=== PATIENT | female | born 1985 | race Caucasian/White ===

== ENCOUNTER 2016-07-09 16:41 | Emergency (ER) | payer OTHER ==
[2016-07-09 18:01] VITALS: BP 117/77
--- NOTE | 2016-07-09 18:16 | UC ---
Hand/Wrist HPI - HPI Summary HPI Summary: While carrying laundry basket yesterday, handle broke and L 5th finger was twisted in an odd direction, injuring DIP joint. [place] it was angulated at first , but she was able to straighten it out. - History Of Current Complaint Chief Complaint: UCUpperExtremity Stated Complaint: LEFT PINKY INJURY Time Seen by Provider: 07/09/16 18:00 Hx Obtained From: Patient Hx Last Menstrual Period: 06/14/16 ?: No Onset/Duration: Sudden Onset Severity Initially: Moderate Severity Currently: Moderate Character Of Pain: Dull, Aching, Throbbing Aggravating Factor(s): Movement Alleviating: Rest Associated Signs And Symptoms: Positive: Redness Related History: Dominant Hand Right - Allergies/Home Medications Allergies/Adverse Reactions: Allergies Allergy/AdvReac Type Severity Reaction Status Date / Time Latex Allergy Severe anaphlactic Verified 03/07/16 20:18 shock Erythromycin Allergy Vomiting Verified 03/07/16 20:18 Home Medications: Home Medications Albuterol HFA INHALER* [Ventolin HFA Inhaler*] 2 puff INH Q6H PRN 07/09/16 [ History Confirmed 07/09/16] Fluticas/Salmet 115/21 HFA(NF) [Advair HFA 115/21 (NF)] 1 puff INH DAILY [History Confirmed 07/09/16] PMH/Surg Hx/FS Hx/Imm Hx Respiratory History Of: Reports: Asthma - Surgical History Surgical History: None - Family History Known Family History: Negative: Blood Disorder - Social History Occupation: Employed Full-time - daycare provider Alcohol Use: None Substance Use Type: None Smoking Status (MU): Never Smoked Tobacco - Immunization History Most Recent Influenza Vaccination: no Review of Systems Constitutional: Negative Skin: Negative Eyes: Negative ENT: Negative Respiratory: Negative Cardiovascular: Negative Gastrointestinal: Negative Genitourinary: Negative Motor: Negative Neurovascular: Negative Musculoskeletal: Arthralgia Neurological: Negative Psychological: Negative All Other Systems Reviewed And Are Negative: Yes Physical Exam Triage Information Reviewed: Yes Appearance: Well-Appearing, No Pain Distress, Well-Nourished Vital Signs: Initial Vital Signs Temp 99.4 F 07/09/16 17:53 Pulse 75 07/09/16 17:53 Resp 16 07/09/16 17:53 BP 117/77 01/09/17 17:53 Pulse Ox 99 07/09/16 17:53 Vital Signs Reviewed: Yes Eye Exam: Normal Eyes: Positive: Conjunctiva Clear ENT Exam: Normal ENT: Positive: Normal ENT inspection, Hearing grossly normal, Pharynx normal, TMs normal Dental Exam: Normal Neck exam: Normal Neck: Positive: Supple, Nontender, No Lymphadenopathy Respiratory Exam: Normal Respiratory: Positive: Chest non-tender, Lungs clear, Normal breath sounds, No respiratory distress, No accessory muscle use Cardiovascular Exam: Normal Cardiovascular: Positive: RRR, No Murmur Musculoskeletal: Positive: No Edema, ROM Limited @ - L 5th finger Neurological Exam: Normal Psychological Exam: Normal Skin Exam: Normal Hand/Wrist Course/Dx - Differential Dx/Diagnosis Provider Diagnoses: L 5th finger sprain Discharge - Discharge Plan Condition: Stable Disposition: HOME Patient Education Materials: Finger Sprain (ED) Referrals: Jenaro Mack MD [Primary Care Provider] - Oscar Jacob MD [Medical Doctor] - If Needed Additional Instructions: If you do not see clear improvement within 7-10 days, please follow up with the orthopedist.
--- NOTE | 2016-07-09 18:31 | RAD ---
Indication: Left fifth finger injury. 3 views of the fifth digit demonstrates no fracture or dislocation. No other bone or joint abnormality is noted. IMPRESSION: No fracture of the fifth finger is noted.
== END 2016-07-09 18:45 | disposition home or self-care (01) ==
LOC: UCCORT 16:41
DX: S63.617A Unspecified sprain of left little finger, initial encounter (principal); X50.1XXA Overexertion from prolonged static or awkward postures, initial encounter; Y93.89 Activity, other specified; Y92.9 Unspecified place or not applicable; Z88.1 Allergy status to other antibiotic agents
CPT/HCPCS: 73140; 99211; G0463

== ENCOUNTER 2017-09-14 09:18 | Emergency (ER) | payer OTHER ==
[2017-09-14 09:48] VITALS: BP 128/82
--- NOTE | 2017-09-14 10:02 | UC ---
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 that had croup- coupe days later she got harsh cough with bronchial burning-- - History of Current Complaint Chief Complaint: UCRespiratory Stated Complaint: SORE THROAT, COUGH Time Seen by Provider: 09/14/17 09:54 Hx Obtained From: Patient Hx Last Menstrual Period: 08/30/17 ?: No Onset/Duration: Sudden Onset, Lasting Days, Still Present Timing: Constant Severity Initially: Mild Severity Currently: Moderate Character: Cough: Productive Aggravating Factors: Deep Breaths, Recumbent Position Alleviating Factors: Bronchodilator Associated Signs And Symptoms: Positive: Chills, Pleuritic Chest Pain - Allergies/Home Medications Allergies/Adverse Reactions: Allergies Allergy/AdvReac Type Severity Reaction Status Date / Time erythromycin base Allergy Vomiting Verified 09/14/17 09:41 latex Allergy Anaphylatic Verified 09/14/17 09:41 Shock Home Medications: Home Medications Bupropion XL* [Wellbutrin XL *] 1 tab PO DAILY 09/14/17 [History Confirmed 09/14] Sertraline* [Zoloft*] 100 mg PO DAILY 09/14/17 [History Confirmed 09/14/17] PMH/Surg Hx/FS Hx/Imm Hx Previously Healthy: No Respiratory History: Asthma Psychological History: Depression - Surgical History Surgical History: None - Family History Known Family History: Positive: None Negative: Blood Disorder - Social History Occupation: Employed Full-time Lives: With Family Alcohol Use: Rare Substance Use Type: None Smoking Status (MU): Never Smoked Tobacco - Immunization History Most Recent Influenza Vaccination: no Review of Systems Constitutional: Chills Skin: Negative Eyes: Negative ENT: Negative Respiratory: Cough Cardiovascular: Chest Pain - bronchial pain with cough Gastrointestinal: Negative Genitourinary: Negative Motor: Negative Neurovascular: Negative Musculoskeletal: Negative Neurological: Negative Psychological: Negative Is Patient Immunocompromised?: No All Other Systems Reviewed And Are Negative: Yes Physical Exam Triage Information Reviewed: Yes Appearance: Well-Appearing, No Pain Distress, Well-Nourished Vital Signs: Initial Vital Signs Temp 98.5 F 09/14/17 09:43 Pulse 77 09/14/17 09:43 Resp 18 09/14/17 09:43 BP 128/82 09/14/17 09:43 Pulse Ox 97 09/14/17 09:43 Vital Signs Reviewed: Yes Eye Exam: Normal Eyes: Positive: Conjunctiva Clear ENT Exam: Normal ENT: Positive: Normal ENT inspection, Hearing grossly normal, Pharynx normal, TMs normal, Uvula midline. Negative: Nasal congestion, Trismus, Muffled voice, Hoarse voice, Dental tenderness, Sinus tenderness Dental Exam: Normal Neck exam: Normal Neck: Positive: Supple, Nontender, No Lymphadenopathy Respiratory Exam: Normal Respiratory: Positive: Chest non-tender, Lungs clear, Normal breath sounds, No respiratory distress, No accessory muscle use Cardiovascular Exam: Normal Cardiovascular: Positive: RRR, No Murmur, Pulses Normal, Brisk Capillary Refill Musculoskeletal Exam: Normal Musculoskeletal: Positive: Strength Intact, ROM Intact, No Edema Neurological Exam: Normal Neurological: Positive: Alert, Muscle Tone Normal Psychological Exam: Normal Skin Exam: Normal UC Diagnostic Evaluation - Laboratory O2 Sat by Pulse Oximetry: 97 Respiratory Course/Dx - Course Course Of Treatment: add prednisone to bronchodilators if symptoms worsen may add antibiodic follow with pcp prn, increase fluids - Differential Dx/Diagnosis Provider Diagnoses: Bronchitis with acute bronchospasm Discharge - Discharge Plan Condition: Stable Disposition: HOME Prescriptions: Albuterol 2.5MG/3ML (0.083%)* [Ventolin 2.5 MG/3 ML NEB.SHAYNA*] 2.5 mg INH Q4H PRN #1 box PRN Reason: cough and wheeze Albuterol HFA INHALER* [Ventolin HFA Inhaler*] 2 puff INH Q4H PRN #1 mdi PRN Reason: cough and wheeze Azithromycin TAB* [Zithromax TAB (Z-ANIYA) 250 mg #6 tabs] 2 tab PO .TODAY, THEN 1 DAILY #1 aniya Fluconazole [Diflucan 150 MG (NF)] 150 mg PO ONCE #2 tab predniSONE TAB* [Deltasone TAB*] 20 mg PO DAILY 6 Days #9 tab Patient Education Materials: Acute Bronchitis (ED), Bronchospasm (ED) Referrals: Jenaro Mack MD [Primary Care Provider] - If Needed
== END 2017-09-14 10:09 | disposition home or self-care (01) ==
LOC: UCCORT 09:18
DX: J40 Bronchitis, not specified as acute or chronic (principal); F32.9 Major depressive disorder, single episode, unspecified
CPT/HCPCS: 99212; G0463

== ENCOUNTER 2018-07-22 16:01 | Emergency (ER) | payer OTHER ==
[2018-07-22 16:19] VITALS: BP 119/60
--- NOTE | 2018-07-22 16:50 | UC ---
Lower Extremity/Ankle HPI - HPI Summary HPI Summary: 32-year-old female presents with complaints of left foot pain after accidentally dropping a 35-40 pound mirror on her foot approximately one hour prior to arrival. Complains of mild discomfort to her dorsal foot over the second and third metatarsals as well as some plantar discomfort of the third and fourth distal metatarsals. Pain slightly worse with weightbearing and ambulation. Mild ecchymosis and swelling at site of injury. She she was able to bear weight immediately after the injury and in the clinic. Denies any numbness or tingling. - History of Current Complaint Chief Complaint: UCLowerExtremity Stated Complaint: LFT FOOT INJURY Time Seen by Provider: 07/22/18 16:20 Hx Obtained From: Patient Hx Last Menstrual Period: unknow, dut to endometriosis Pain Intensity: 3 - Allergies/Home Medications Allergies/Adverse Reactions: Allergies Allergy/AdvReac Type Severity Reaction Status Date / Time erythromycin base Allergy Vomiting Verified 07/22/18 16:16 latex Allergy Anaphylatic Verified 07/22/18 16:16 Shock PMH/Surg Hx/FS Hx/Imm Hx Respiratory History: Asthma Psychological History: Depression - Surgical History Surgical History: None - Family History Known Family History: Positive: Non-Contributory - Social History Occupation: Employed Full-time Lives: With Family Alcohol Use: Rare Substance Use Type: None Smoking Status (MU): Never Smoked Tobacco - Immunization History Most Recent Influenza Vaccination: no Review of Systems All Other Systems Reviewed And Are Negative: Yes Constitutional: Positive: Negative Skin: Positive: Bruising Respiratory: Positive: Negative Cardiovascular: Positive: Negative Gastrointestinal: Positive: Negative Genitourinary: Positive: Negative Motor: Negative: Weakness Neurovascular: Negative: Decreased Sensation Musculoskeletal: Positive: Other: - See HPI Neurological: Positive: Negative Is Patient Immunocompromised?: No Physical Exam - Summary Physical Exam Summary: GENERAL APPEARANCE: Well developed, well nourished, alert and cooperative, and appears to be in no acute distress. CARDIAC: Normal S1 and S2. No S3, S4 or murmurs. Rhythm is regular. There is no peripheral edema, cyanosis or pallor. Extremities are warm and well perfused. Capillary refill is less than 2 seconds. LUNGS: Clear to auscultation without rales, rhonchi, wheezing or diminished breath sounds. Peripheral pulses intact. ABDOMEN: Positive bowel sounds. Soft, nondistended, nontender. No guarding or rebound. No masses or hepatosplenomegally. MUSKULOSKELETAL: Mild tenderness with palpation to dorsal left foot over the 2d & 3rd metarsals. Mild ecchymosis and swelling noted at same site. Normal gait. NEUROLOGICAL: Strength and sensation symmetric and intact distally. SKIN: Skin normal color, texture and turgor. Triage Information Reviewed: Yes Vital Signs: Initial Vital Signs Temp 97.9 F 07/22/18 16:15 Pulse 73 07/22/18 16:15 Resp 16 07/22/18 16:15 BP 119/60 07/22/18 16:15 Pulse Ox 100 07/22/18 16:15 Vital Signs Reviewed: Yes Diagnostics - Radiology No standard instances Radiology Interpretation Completed By: ED Physician - No acute fracture, Radiologist Summary of Radiographic Findings: Patient Name: SARAH CROWLEY . Ordering Physician: Ming Christian NP Acct.#: [id number]. : 1985 Age: 32 Sex: F Location: [facility]. Exam Date: 1622 ADM Status: REG ER. Order Information: FOOT LEFT 3+ VWS. Accession Number: [id number]. CPT: 00401. INDICATION: Pain after dropping a mirror on the foot. COMPARISON: None. TECHNIQUE: 3 views of the left foot were obtained. FINDINGS: The adequately corticated bones are properly aligned. Joint spaces appear. maintained. No fracture, dislocation or focal bony abnormality is seen. IMPRESSION: NO RADIOGRAPHICALLY APPARENT FRACTURE OR DISLOCATION OF THE LEFT FOOT. Lower Extremity Course/Dx - Course Course Of Treatment: 32-year-old female presents with complaints of left foot pain after accidentally dropping a 35-40 pound mirror on her foot approximately one hour prior to arrival. Complains of mild discomfort to her dorsal foot over the second and third metatarsals as well as some plantar discomfort of the third and fourth distal metatarsals. Pain slightly worse with weightbearing and ambulation. Mild erythema and swelling at site of injury. She she was able to bear weight immediately after the injury and in the clinic. Denies any numbness or tingling. Afebrile. Vital signs stable. Exam reveals an adult female in no acute distress with some tenderness over the dorsal aspect of her left foot at the second and third metatarsals with some mild erythema, ecchymosis, and swelling at the same site. Full range of motion to all digits. Good pedal pulses. Sensation intact distally. X-ray negative for fracture. Recommend conservative treatment of contusion of left foot with OTC analgesics and RICE. She is to follow up with her PCP if symptoms persist. Anticipatory guidance and warning symptoms reviewed with patient. Verbalizes understanding and agrees with POC. - Differential Dx/Diagnosis Differential Diagnosis/HQI/PQRI: Contusion, Fracture (Closed) Provider Diagnosis: Contusion of left foot Discharge - Sign-Out/Discharge Documenting (check all that apply): Patient Departure All imaging exams completed and their final reports reviewed: Yes - Discharge Plan Condition: Stable Disposition: HOME Patient Education Materials: Contusion in Adults (ED) Referrals: Jenaro Mack MD [Primary Care Provider] - 7 Days (If no improvement in symptoms.) Additional Instructions: The x-ray of your foot performed in the clinic tonight showed no evidence of a fracture. I suspect that you have a contusion (bruise) of the foot from the injury. Rest the foot as much as possible. You may continue to walk and bear weight as tolerated. Apply ice to the affected area for 15-20 minutes 4 times a day to help with pain and swelling. Keep the foot elevated when sitting to reduce swelling. Take acetaminophen (Tylenol) or ibuprofen (Advil, Motrin) according to directions as needed for pain. Follow up with your primary care provider in 7 days is symptoms do not improve. Seek immediate medical attention if you have severe pain not managed with pain medication, increased swelling, your foot/toes become cool and turn pale or blue in color, you develop numbness or tingling, or any worsening of symptoms. - Billing Disposition and Condition Condition: STABLE Disposition: Home - Attestation Statements Provider Attestation: Per institutional requirements, I have reviewed the chart, however, I was not consulted specifically or made aware of this patient by the midlevel provider. I did not personally evaluate, interact with , or disposition this patient.
== END 2018-07-22 17:28 | disposition home or self-care (01) ==
LOC: UCCORT 16:01
DX: S90.32XA Contusion of left foot, initial encounter (principal); W20.8XXA Other cause of strike by thrown, projected or falling object, initial encounter; Y92.9 Unspecified place or not applicable; Z88.1 Allergy status to other antibiotic agents; Z91.040 Latex allergy status
CPT/HCPCS: 99211; G0463